=== PATIENT | female | born 1950 | race Caucasian/White ===

== ENCOUNTER → 2017-02-18 | Outpatient (CLI) | payer MEDICARE ==
[~2017-02-18] MED LIST: ACYCLOVIR PO; ALEVE220 M1 PO; AMLODIPINE BESYL5 MG PO; ASPIR-TRIN325 MG PO; BAYER ASPIRIN325 M1 PO; CALCIUM + D 6001 TA1 PO; DULERA 100 MCG/13 GM IN; FISH OIL 1,0001 CAP PO; FLONASE 0.05% N16 G1; HAIR SKIN NAIL1 EACH PO; KRILL OIL 3001 EACH PO; LEVOTHYROXINE88 MCG PO; LORTAB 10-3251 EACH PO; METFORMIN HCL500 M1 PO; NORVASC PO; PHENERGAN12.5 MG PO; PRENATAL1 TA1 PO; SINGULAIR PO; ULTRAM PO; VITAMIN D1000 UNI1 PO; VOLTAREN75 MG PO; ZOFRAN PO; ZYRTEC10 M2 PO
--- NOTE | ~2017-02-18 | CR63 ---
[facility] A Service of [facility] RADIOLOGY TEXT RESULTS PATIENT: PAMELLA CORONEL LOCATION: [facility] : 48 UNIT #: [id number] AGE: [address]: Khoa Davis MD SEX: F ORDER DR: [id number] [facility] [address] [place], [place] [address] [id number] O MR#: [id number] Acc #: [id number] NAME: PAMELLA CORONEL. : 1950 SEX: F STUDY DATE/TIME: 02/18/2017 11:07 UNIT: [facility] ROOM: STUDY DESCRIPTION: CR Chest 2 View Attending Physician: Khoa Davis M.D. Referring Physician: Khoa Davis M.D. Ordering Physician: Khoa Davis M.D. Primary Care Physician: Dennys Hatch A.P.R.N. MEDICAL IMAGING REPORT This report is preliminary unless electronic signature is present EXAM Two-view chest. HISTORY Preoperative evaluation for knee surgery, shortness of air, symptoms for 2 months COMPARISON 12/15/2014. FINDINGS Two views of the chest demonstrates mild pulmonary hyperinflation, patchy hyperlucency, particularly in the right upper lobe, could represent underlying emphysema. Mild interstitial prominence may also reflect background interstitial disease and fibrosis. Small amount of right basilar atelectasis. No focal airspace disease or consolidation. No effusions. Heart and mediastinum unremarkable. Mild aortic atherosclerotic changes. Osseous structures unremarkable for age. No pneumothorax. IMPRESSION Hyperinflation with patchy hyperlucency most prominent in the right upper lung could represent underlying emphysema. Also mild diffuse interstitial prominence could indicate an element of background fibrosis, chronic interstitial disease. No acute airspace disease or consolidation. No effusions. Dictated by... Janice Caicedo M.D. THIS IS AN ELECTRONICALLY VERIFIED REPORT Janice Caicedo M.D. at 02/19/2017 5:08 PM JMS/pc [facility] A Service of [facility] RADIOLOGY TEXT RESULTS PATIENT: PAMELLA CORONEL LOCATION: [facility] : [birth year] UNIT #: [id number] AGE: [address]: Khoa Davis MD SEX: F ORDER DR: TD: 02/19/2017 09:26 JOB #: [id number] MEDICAL IMAGING REPORT Page 1 of 1 COPY
--- NOTE | ~2017-02-18 | EKG ---
PATIENT: PAMELLA CORONEL UNIT #: [id number] Ventricular Rate: 64 BPM Atrial Rate: 64 BPM P-R Interval: 172 ms QRS Duration: 84 ms Q-T Interval: 394 ms QTC Calculation(Bezet): 406 ms P [place]: 64 degrees Calculated R [place]: 14 degrees Calculated T [place]: 43 degrees Diagnosis Line: Normal sinus rhythm Diagnosis Line: Nonspecific ST and T wave abnormality Diagnosis Line: Abnormal ECG Diagnosis Line: When compared with ECG of 15-DEC-2014 09:04, Diagnosis Line: Nonspecific T wave abnormality now evident in Diagnosis Line: Lateral leads Diagnosis Line: Confirmed by TAWNY RAO MD ([id number]) on Diagnosis Line: 02/18/2017 2:26:44 PM INTERPRETING MD: JALEN OCASIO
--- NOTE | ~2017-02-18 | CO ---
Unit #: [id number] #: [id number] Patient: PAMELLA CORONEL [id number] [address] [place], [place] [address] [id number] O MR#: [id number] NAME: PAMELLA CORONEL. ROOM: Age: 66 Sex: F Admission Date: 02/18/2017 : 1950 Attending Physician: Khoa Davis M.D. Primary Care Physician: Dennys Hatch Aprn Consultation Date: 02/18/2017 CONSULTATION REPORT REASON FOR CONSULTATION Preoperative medical evaluation prior to left total knee arthroplasty, scheduled by Dr. Davis for 03/04/2017. HISTORY OF PRESENT ILLNESS The patient is a 66-year-old female, who presents to preprocedural screening for the reasons indicated above. The patient reports a long history of left knee pain and has been evaluated by Dr. Davis and scheduled for the above-referenced procedure. The patient denies upper chest, upper back, arm, neck, jaw pain or pressure. Denies shortness of air, dyspnea on exertion, PND, sleep apnea, and/or orthopnea. Denies lightheadedness, dizziness, presyncope, syncope, and/or palpitations. She underwent right total knee arthroplasty in 12/[address] Davis and tolerated the procedure well other than what she describes as severe postoperative nausea and vomiting, believed to be related to postoperative analgesics. PAST MEDICAL HISTORY 1. Osteoarthritis. 2. Hypertension. 3. Type 2 diabetes mellitus, treated with metformin. 4. Allergic rhinitis. 5. Hypertension. 6. History of diverticulitis. 7. Hypothyroidism. 8. Hyperlipidemia. 9. COPD. 10. History of shingles, status post shingles injection with recent right forearm blisters, tenderness, and erythema and single blister on the medial aspect of the hand, for which she has been using triamcinolone cream. PAST SURGICAL HISTORY 1. Laparoscopic cholecystectomy. 2. Tubal ligation. 3. Right bunionectomy x2. 4. Rhinoplasty. 5. Bilateral ear tube placement. 6. Bilateral cataract extraction. 7. Bilateral LASIK x2. 8. Colonoscopy x3. 9. Right total knee arthroplasty in 2014. Please note, the patient denies a personal and family history of complications to anesthesia, but experienced severe nausea and vomiting Unit #: [id number] #: [id number] Patient: PAMELLA CORONEL postoperatively possibly related to analgesics per the patient. SOCIAL HISTORY Denies tobacco use, EtOH use, or illicit drug use. FAMILY HISTORY Mother ,coronary artery disease and myocardial infarction. Father, coronary artery disease, myocardial infarction, and cancer. REVIEW OF SYSTEMS Right anterolateral forearm outbreak with erythema, blisters, itching, and tenderness with new spot on the lateral right hand without treatment. Denies contact with plants, new soaps, laundry detergents, dryer sheets, or other substances. The patient states this looks similar to shingles, but states that she has had shingle vaccine. No fever, chills, fatigue, nausea, vomiting, or diarrhea. A 10-point review of systems is conducted and otherwise negative except as indicated under history of present illness above. PHYSICAL EXAMINATION GENERAL: A 66-year-old female, awake, alert, in no acute distress. VITAL SIGNS: Temperature 98.3, heart rate 71, respiratory rate 16, blood pressure 185/79, oxygen saturation 98% on room air. HEENT: Atraumatic and normocephalic. Sclerae anicteric. No discharge from eyes, ears, or nares. LYMPH: No preauricular, postauricular, tonsillar, submental, anterior, posterior, or cervical adenopathy. ENDOCRINE: No thyromegaly, thyroid nodules, or tenderness. RESPIRATORY: Clear to auscultation in all bender bilaterally without wheezes, rhonchi, or rales. CARDIOVASCULAR: S1 and S2. Regular rate and rhythm without murmur or rub. GI: Bowel sounds are positive x4. Soft, nontender, nondistended. EXTREMITIES: No edema, cyanosis, or clubbing. DERM: Right lateral forearm, approximately 0.5 cm lesion with what appears to be dried vesicles, no streaking, no drainage. Also one maculopapular erythematous vesicle on the lateral aspect of the right hand without discharge or streaking. MUSCULOSKELETAL: Strength 5/5 in all extremities bilaterally to flexion and extension. NEUROLOGIC: Alert and oriented x3. Speech clear. Cranial nerves II through XII are grossly intact. Follows directions during examination. DIAGNOSTIC STUDIES LABORATORY RESULTS: WBC 8.0, hemoglobin 13.1, hematocrit 39.3, platelets 291,000. UA negative with neither microscopic nor culture indicated. Sodium 136, potassium 3.2, chloride 101, CO2 of 27, glucose 110, BUN 14, creatinine 1.0, calcium 9.3, AST 26, ALT 21, alkaline phosphatase 74, bilirubin total 0.8, total protein 7.7, albumin 4.1, hemoglobin A1c 6.0, PT 10.0, INR 0.9. Blood type A positive, antibody screen negative, MRSA nasal swab report pending at this time. IMAGING STUDIES: Two-view chest x-ray report pending at this time. CARDIOLOGY: 12-lead EKG, normal sinus rhythm, nonspecific ST and T-wave abnormality, confirmatory report pending at this time. Unit #: [id number] #: [id number] Patient: PAMELLA CORONEL The patient is a 66-year-old female, who presents to preprocedural screening for: 1. Preoperative medical evaluation prior to left total knee arthroplasty. The patient's Berry revised cardiac risk index based on risk factors and information available today is equal to 0.4% to 0.5% and represents the patient's rate of fatal or nonfatal cardiac , cardiopulmonary arrest, arrhythmia, and/or pulmonary edema. This has been discussed in detail with the patient, and she wishes to proceed with surgery as scheduled at this time. 2. Hypertension. Blood pressure is elevated today. This is only based on one reading. The patient is going to schedule an appointment hopefully today to be seen by her primary care provider for right forearm lesion, and we will have her blood pressure rechecked and managed through her PCP. 3. Diabetes mellitus. We will discontinue metformin based on hospital policy. Monitor Accu-Cheks, oral intake and place the patient on low-dose sliding scale insulin based on Accu-Cheks. 4. Allergic rhinitis. Continue antihistamines and hold for sedation. 5. History of diverticulitis. The patient has no issues today. 6. Hypothyroidism. We will check a TSH and free T4 of blood in lab today and continue home medication based on those results. 7. Osteoarthritis. 8. Chronic obstructive pulmonary disease. We will continue Dulera and add inhaled bronchodilators and mucolytics postoperatively if indicated. 9. History of shingles with possible small recurrence on the lateral right forearm and right hand. Again, the patient is going to see her primary care provider today for further evaluation and possible treatment with antiviral based on her assessment. I have discussed this with Liz Hernandez RN, and she will inform Dr. Davis of this as well. The patient will possibly require respiratory precautions, and this has been discussed with the patient. Thank you for allowing us to participate in the care of this patient. We will gladly follow the patient postoperatively for medical management pending order of Dr. Davis and his plans regarding surgery given the possibility of small shingles outbreak on the patient's right forearm and right hand. Dictated by... Do Bowser A.P.R.N. for Soheila Blevins/marley TD: 02/19/2017 05:39 JOB #: [id number] CONSULTATION REPORT Page 1 of 1 X Do Bowser [employer] X CONSULTATION REPORT
[2017-02-18 10:48] LABS: URINE APPEARANCE CLEAR; URINE BILIRUBIN NEG (NEG); URINE BLOOD NEG (NEG); URINE COLOR YELLOW; URINE GLUCOSE NEG (NEG); URINE KETONE NEG (NEG); URINE LEUKOCYTE ESTERASE NEG (NEG); URINE NITRATE NEG (NEG); URINE PROTEIN NEG (NEG); URINE SPECIFIC GRAVITY 1.009 (1.003-1.035); URINE UROBILINOGEN 0.2 MG/DL (NEG)
[2017-02-18 10:51] LABS: CULTURE INDICATED? NO; URINE SOURCE CLEAN CATCH
[2017-02-18 11:00] LABS: HEMATOCRIT 39.3 % (35.0-45.0); HEMOGLOBIN 13.1 gm/dL (12.0-16.0); MEAN CELL VOLUME 85.3 FL (83-96); MEAN CORPUSCULAR HEMOGLOBIN 28.5 PG (28-34); MEAN CORPUSCULAR HGB CONC 33.4 g/dL (30-36); MEAN PLATELET VOLUME 7.1 FL (6.5-11.5); RED BLOOD COUNT 4.61 X10e (3.90-5.30); RED CELL DISTRIBUTION WIDTH 14.4 % (11.0-15.5)
[2017-02-18 11:16] LABS: INR 0.9
[2017-02-18 11:24] LABS: ALBUMIN SERUM 4.1 g/dL (3.5-5.0); BILIRUBIN,TOTAL 0.8 mg/dL (0.2-2.0); CALCIUM SERUM 9.3 mg/dL (8.4-10.2); GLOM FILT RATE Estimated 58.3 mL/min (>60); POTASSIUM 4.2 mmol/L (3.5-5.1); PROTEIN TOTAL SERUM 7.7 g/dL (6.0-8.3)
== END | disposition home or self-care (01) ==
LOC: CAMB 08:00
PROVIDERS: Orthopaedic Surgery
DX: Z01.818 Encounter for other preprocedural examination (principal); M17.12 Unilateral primary osteoarthritis, left knee; R94.31 Abnormal electrocardiogram [ECG] [EKG]; R91.8 Other nonspecific abnormal finding of lung field; J98.4 Other disorders of lung
CPT/HCPCS: 36415; 71020; 80053; 81003; 83036; 85027; 85610; 86850; 86900; 86901; 87070; 93005